=== PATIENT | female | born 2000 ===

== ENCOUNTER 2020-12-09 14:02 | Outpatient (CLI) | payer OTHER | END 2020-12-09 15:28 | disposition home or self-care (01) | LOC: OFIC 805 14:02 | PROVIDERS: ATTEND Otolaryngology Otology & Neurotology | DX: K05.10 Chronic gingivitis, plaque induced (principal); J02.8 Acute pharyngitis due to other specified organisms; R13.19 Other dysphagia; H61.22 Impacted cerumen, left ear ==